=== PATIENT | male | born 2005 | race Caucasian/White ===

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

== ENCOUNTER → 2023-06-11 | Outpatient (CLI) | payer BC ==
--- NOTE | 2023-06-11 17:50 | XR ---
EXAMINATION TYPE: XR foot complete RT DATE OF EXAM: 06/11/2023 COMPARISON: NONE HISTORY: 17-year-old male M7 9.671, right foot pain after tripping injury last night. TECHNIQUE: 3 views FINDINGS: Os peroneum. Suspected interosseous lipoma versus prominent vascular remnant measuring 1 cm in the mi d calcaneal body. No acute fracture, subluxation, or dislocation is seen. IMPRESSION: No acute osseous abnormality seen.
== END | disposition home or self-care (01) ==
LOC: RADXRMAIN 14:45
PROVIDERS: ATTEND Nurse Practitioner Family
DX: M79.671 Pain in right foot (principal)

== ENCOUNTER 2024-11-08 22:18 | Emergency (ER) | payer BC ==
[2024-11-08 22:22] VITALS: BP 120/77; PULSE 63; RESP 18; TEMP 98.3
--- NOTE | 2024-11-08 22:38 | ED ---
Upper Extremity HPI - General Chief Complaint: Extremity Injury, Upper Stated Complaint: rt hand injury Time Seen by Provider: 11/08/24 22:37 Source: patient, RN notes reviewed Mode of arrival: ambulatory Limitations: no limitations - History of Present Illness Initial Comments: 19-year-old male presented to ER for evaluation of right fourth digit injury. Patient states he was playing football this evening and when attempting to catch the ball he accidentally jammed his right fourth digit. Patient was reporting pain and swelling to this digit. Denies paresthesias. He has not taken anything for pain at this time. No other injuries. - Related Data Home Medications Medication Instructions Recorded Confirmed Kanuma Infusions 1 mg IV Q14D 04/08/16 04/08/16 Allergies Allergy/AdvReac Type Severity Reaction Status Date / Time amoxicillin Allergy Rash/Hives Verified 11/08/24 22:22 Review of Systems ROS Statement: Those systems with pertinent positive or pertinent negative responses have been documented in the HPI. ROS Other: All systems not noted in ROS Statement are negative. Past Medical History Additional Past Medical History / Comment(s): lysosomal acid lipase deficiency, History of Any Multi-Drug Resistant Organisms: None Reported Additional Past Surgical History / Comment(s): liver biopsy x2, eye surgery, medi port Past Psychological History: No Psychological Hx Reported Smoking Status: Never smoker Past Alcohol Use History: None Reported Past Drug Use History: None Reported General Exam - General Exam Comments Initial Comments: Visual Physical Exam Vital signs reviewed General: Well-appearing, nontoxic, no acute distress. Head: Normocephalic, atraumatic Eyes: PERRLA, EOMI ENT: Airway patent Chest: Nonlabored breathing Skin: No visual rash, normal skin tone Neuro: Alert and oriented 3 Musculoskeletal: Edema noted to right fourth digit. Limitations: no limitations General appearance: alert, in no apparent distress Respiratory exam: Present: normal lung sounds bilaterally. Absent: respiratory distress, wheezes, rales, rhonchi, stridor Cardiovascular Exam: Present: regular rate, normal rhythm, normal heart sounds. Absent: systolic murmur, diastolic murmur, rubs, gallop, clicks Extremities exam: Present: full ROM, tenderness (Right fourth digit PIP joint. There is mild swelling and contusion.), normal capillary refill (2+ right radial pulse), other (No anatomical snuffbox tenderness. No wrist, elbow or shoulder pain.) Neurological exam: Present: alert, oriented X3, CN II-XII intact Skin exam: Present: warm, dry, intact, normal color. Absent: rash Course Vital Signs 11/08/24 22:19 Temperature 98.3 F Pulse Rate 63 Respiratory 18 Rate Blood Pressure 120/77 O2 Sat by Pulse 98 Oximetry Medical Decision Making - Medical Decision Making I performed the quick note portion of this chart. Electronically signed by Lia Whittington PA-C Was pt. sent in by a medical professional or institution (, [facility], [facility], urgent care, hospital, or penitentiary...) When possible be specific @ -No Did you speak to anyone other than the patient for history (EMS, parent, family, police, friend...)? What history was obtained from this source @ -No Did you review nursing and triage notes (agree or disagree)? Why? @ -I reviewed and agree with nursing and triage notes Were old charts reviewed (outside hosp., previous admission, EMS record, old EKG, old radiological studies, urgent care reports/EKG's, penitentiary records)? Report findings @ -No old charts were reviewed Differential Diagnosis (chest pain, altered mental status, abdominal pain women, abdominal pain men, vaginal bleeding, weakness, fever, dyspnea, syncope, headache, dizziness, GI bleed, back pain, seizure, CVA, palpatations, mental health, musculoskeletal)? @ -Differential Musculoskeletal: Muscular strain, contusion, ligament sprain, fracture, arthritis, septic arthritis, bursitis, cellulitis, muscle spasm, nerve compression, DVT, arterial occlusion, herpes zoster, electrolyte abnormality, tumor.... This is not meant to be in all inclusive list EKG interpreted by me (3pts min.). @ -None done X-rays interpreted by me (1pt min.). @ -Right hand x-ray interpreted me negative for acute fractures or dislocations. CT interpreted by me (1pt min.). @ -None done U/S interpreted by me (1pt. min.). @ -None done What testing was considered but not performed or refused? (CT, X-rays, U/S, labs)? Why? @ -None What meds were considered but not given or refused? Why? @ -None Did you discuss the management of the patient with other professionals (professionals i.e. , PA, [facility], lab, RT, psych nurse, social work coordinator, direct care counselor, teacher, tax compliance officer, nurse case management)? Give summary @ -No Was smoking cessation discussed for >3mins.? @ -No Was critical care preformed (if so, how long)? @ -No Were there social determinants of health that impacted care today? How? (Homelessness, low income, unemployed, alcoholism, drug addiction, transportation, low edu. Level, literacy, decrease access to med. care, [facility], rehab)? @ -No Was there de-escalation of care discussed even if they declined (Discuss DNR or withdrawal of care, Hospice)? DNR status @ -No What co-morbidities impacted this encounter? (DM, HTN, Smoking, COPD, CAD, Cancer, CVA, ARF, Chemo, Hep., AIDS, mental health diagnosis, sleep apnea, morbid obesity)? @ -None Was patient admitted / discharged? Hospital course, mention meds given and route, prescriptions, significant lab abnormalities, going to OR and other pertinent info. @ -Discharge. 19-year-old male presented the ER for evaluation of right fourth digit injury. Vital signs stable. Patient is neurovascularly intact. No anatomical snuffbox tenderness. X-rays negative for acute fractures or dislocations. Patient provided with finger splint and instructed on conservative treatment options. Return parameters discussed. Patient discharged in stable condition with follow-up PCP. Patient verbally expressed understanding agreement care plan. Case discussed with ED attending, Dr. Allred Undiagnosed new problem with uncertain prognosis? @ -No Drug Therapy requiring intensive monitoring for toxicity (Heparin, Nitro, Insulin, Cardizem)? @ -No Were any procedures done? @ -No Diagnosis/symptom? @ -Finger sprain Acute, or Chronic, or Acute on Chronic? @ -Acute Uncomplicated (without systemic symptoms) or Complicated (systemic symptoms)? @ -Uncomplicated Side effects of treatment? @ -No Exacerbation, Progression, or Severe Exacerbation? @ -No Poses a threat to life or bodily function? How? (Chest pain, USA, PA, pneumonia, PE, COPD, DKA, ARF, appy, cholecystitis, CVA, Diverticulitis, Homicidal, Suicidal, threat to staff... and all critical care pts) @ -No - Radiology Data Radiology results: report reviewed, image reviewed Disposition Clinical Impression: Finger sprain Disposition: HOME SELF-CARE Condition: Stable Instructions (If sedation given, give patient instructions): Finger Sprain (ED) Additional Instructions: Continue to rest ice elevate. You may take [id number] Tylenol for pain control. Follow-up close with PCP. Return to the ER for any new or worsening concerns. Is patient prescribed a controlled substance at d/c from ED?: No Referrals: Elsa Doe NPC [REFERRING] - 1-2 days Time of Disposition: 23:27
--- NOTE | 2024-11-09 03:04 | XR ---
EXAM: XR Right Hand Complete, 3 or More Views CLINICAL HISTORY: ITS.REASON XR Reason: right hand injury TECHNIQUE: Frontal, lateral and oblique views of the right hand. COMPARISON: No relevant prior studies available. FINDINGS: Bones/joints: Unremarkable. No acute fracture. No dislocation. Soft tissues: Unremarkable. No radiopaque foreign body. IMPRESSION: Normal right hand x-rays.
== END 2024-11-08 23:39 | disposition home or self-care (01) ==
LOC: EC 22:18
DX: S63.614A Unspecified sprain of right ring finger, initial encounter (principal); Z88.0 Allergy status to penicillin; W21.01XA Struck by football, initial encounter
CPT/HCPCS: 99283